=== PATIENT | male | born 2000 | race African-American/Black ===

== ENCOUNTER 2020-11-30 13:18 | Emergency (ER) | payer BC ==
[2020-11-30] MEDS ORDERED: Ondansetron ODT 4 MG TAB ONE (14:48)
== END 2020-11-30 15:30 | disposition home or self-care (01) ==
LOC: ERS 13:18
DX: B34.9 Viral infection, unspecified (principal); R11.2 Nausea with vomiting, unspecified; R19.7 Diarrhea, unspecified
CPT/HCPCS: 99283; Q0162